=== PATIENT | male | born 1960 | race Caucasian/White ===

== ENCOUNTER 2018-05-31 14:11 | Outpatient (CLI) | payer OTHER | END 2018-05-31 14:12 | disposition home or self-care (01) | LOC: CP 14:11 | PROVIDERS: ATTEND Internal Medicine Critical Care Medicine | DX: J44.9 Chronic obstructive pulmonary disease, unspecified (principal); G47.33 Obstructive sleep apnea (adult) (pediatric) | CPT/HCPCS: 94060; 94727; 94729 ==

== ENCOUNTER 2018-06-13 13:26 | Outpatient (CLI) | payer OTHER ==
--- NOTE | 2018-06-13 14:36 | CT ---
HIGH RESOLUTION CHEST CT WITHOUT CONTRAST: History: Shortness of breath for months. Abnormal pulmonary function test. Technique: Multiple contiguous axial images were obtained in a high resolution chest CT. Thin slices were taken at large intervals. Sagittal and coronal reformats were performed. FINDINGS: The heart is enlarged. The patient is status post CABG. No hilar or mediastinal lymphadenopathy are a ppreciated on this limited noncontrast examination. There is a small left pleural effusion. Emphysematous changes are seen in the lung apices. Increased interstitial markings are present. No suspicious pulmonary nodules are seen but evaluation is limited given the large intervals. Degenerative changes are seen in the spine. The visualized subdiaphragmatic structures are unremarkab le. The chest wall soft tissues are unremarkable. IMPRESSION: 1. Small left pleural effusion. POS: [facility]
== END 2018-06-13 13:27 | disposition home or self-care (01) ==
LOC: BICCT 13:26
PROVIDERS: ATTEND Internal Medicine Critical Care Medicine
DX: J84.9 Interstitial pulmonary disease, unspecified (principal); J90 Pleural effusion, not elsewhere classified
CPT/HCPCS: 71250

== ENCOUNTER 2018-06-16 17:00 | Outpatient (CLI) | payer OTHER | END 2018-06-16 17:01 | disposition home or self-care (01) | LOC: SLEEPLAB 17:00 | PROVIDERS: ATTEND Internal Medicine Critical Care Medicine | DX: G47.33 Obstructive sleep apnea (adult) (pediatric) (principal); R53.83 Other fatigue; R06.89 Other abnormalities of breathing; J44.9 Chronic obstructive pulmonary disease, unspecified; I21.9 Acute myocardial infarction, unspecified; I11.9 Hypertensive heart disease without heart failure; G47.10 Hypersomnia, unspecified; R09.02 Hypoxemia; Z68.32 Body mass index [BMI] 32.0-32.9, adult | CPT/HCPCS: 95806 ==

== ENCOUNTER 2018-07-01 20:30 | Outpatient (CLI) | payer OTHER | END 2018-07-01 20:31 | disposition home or self-care (01) | LOC: SLEEPLAB 20:30 | PROVIDERS: ATTEND Internal Medicine Critical Care Medicine | DX: G47.33 Obstructive sleep apnea (adult) (pediatric) (principal); R09.89 Other specified symptoms and signs involving the circulatory and respiratory systems; R53.83 Other fatigue; R06.83 Snoring; J44.9 Chronic obstructive pulmonary disease, unspecified; I21.9 Acute myocardial infarction, unspecified; I51.9 Heart disease, unspecified; G47.10 Hypersomnia, unspecified; E66.9 Obesity, unspecified; Z68.32 Body mass index [BMI] 32.0-32.9, adult | CPT/HCPCS: 95811 ==